=== PATIENT | female | born 2000 ===

== ENCOUNTER 2018-07-21 11:51 | Emergency (ER) | payer SELFPAY ==
[2018-07-21 11:56] VITALS: BP 106/71
[2018-07-21] MEDS ORDERED: NS 1,000 ML IV ONE ×2 (12:03→12:12)
[2018-07-21] MEDS ORDERED: METOCLOPRAMIDE 10 MG/2 ML VIAL IVP ONE (12:12)
[2018-07-21] MEDS ORDERED: KETOROLAC 15 MG/1 ML SDV IVP ONE (12:12)
--- NOTE | 2018-07-21 12:14 | EDPHY ---
H & P Stated Complaint: H/a x 3 days, and mid abd pain x 1 days w/vomiting Time Seen by Provider: 07/21/18 12:02 HPI/ROS: CHIEF COMPLAINT: Headache x3 days HISTORY OF PRESENT ILLNESS: 18-year-old female via private vehicle after being seen at [facility]. Patient describes 3 days of non thunderclap bifrontal headache. She has not taken any analgesia. She has also developed mild epigastric discomfort and nausea as well as vomited twice last evening. No back or flank pain. No urinary abnormality. No gait instability. No nuchal rigidity. No photophobia. No slurred speech. No fever or chills. No flu-like symptoms. PRIMARY CARE PROVIDER: [facility] REVIEW OF SYSTEMS: 10 systems reviewed and negative with the exception of the elements mentioned in the history of present illness PAST MEDICAL & SURGICAL HISTORY: No pertinent medical or surgical history SOCIAL HISTORY: Nonsmoker. Student. FAMILY HISTORY: No family history of chronic headache or migraine PHYSICAL EXAM (Prior to examination, patient consented to physical exam, hands were washed and my usual and customary physical exam procedures followed) 1) GENERAL: Well-developed, well-nourished, alert and oriented. Appears to be in no acute distress. 2) HEAD: Normocephalic, atraumatic 3) HEENT: Pupils equal, round, reactive to light bilaterally. Sclera anicteric. Nasopharynx, oropharynx, clear, no lesions. Moist Mucous membranes. Ears bilaterally with normal tympanic membranes. 4) NECK: Full range of motion, no meningeal signs. 5) LUNGS: Clear auscultation bilaterally, no wheezes, no rhonchi, no retractions. 6) HEART: Regular rate and rhythm, no murmur, no heave, no gallop. 7) ABDOMEN: No guarding, no rebound, no focal tenderness, negative McBurney's, negative Barragan's, negative Rovsing's, negative peritoneal sign, 8) MUSCULOSKELETAL: Moving all extremities, no focal areas of tenderness, no obvious trauma. No peripheral edema or discoloration. 9) BACK: No CVA tenderness, no midline vertebral tenderness, no fluctuance, no step-off, no obvious trauma, no visual or palpable abnormality. 10) SKIN: No rash, no petechiae. 11) Psychiatric: Patient is oriented X 3, there is no agitation. 12) NEURO: Awake, alert, and oriented to person, place and time. Answers questions appropriately. There were no obvious focal neurologic abnormalities. No cerebellar dysfunction. Cranial nerves 2 through to 12 intact. Normal steady gait. Upper and lower extremities bilaterally with strength 5 / 5, reflexes 2+. DIFFERENTIAL DIAGNOSIS: In no particular order, including but not limited to subarachnoid hemorrhage, migraine headache, tension headache and infectious causes such as meningitis, pharyngitis and sinusitis. The patient understands that this diagnosis is provisional and can never be 100% accurate. Usual and customary warnings were given concerning the clinical impression and all the patient's questions were answered. The patient was instructed to return to the emergency department should her symptoms worsen or return, or develop any new symptoms, otherwise to followup as directed in discharge instructions. This is a partial list of diagnoses considered. These considerations are based on history, physical exam, past history and reassessment. - Personal History LMP (Females 10-55): 15-21 Days Ago - Medical/Surgical History Hx Asthma: No Hx Chronic Respiratory Disease: No Hx Diabetes: No Hx Cardiac Disease: No Hx Renal Disease: No Hx Cirrhosis: No Hx Alcoholism: No Hx HIV/AIDS: No Hx Splenectomy or Spleen Trauma: No Other PMH: migraines - Social History Smoking Status: Never smoked Constitutional: Initial Vital Signs Temperature (C) 36.5 C 07/21/18 11:53 Heart Rate 86 07/21/18 11:53 Respiratory Rate 16 07/21/18 11:53 Blood Pressure 106/71 07/21/18 11:53 O2 Sat (%) 98 07/21/18 11:53 O2 Delivery Mode Room Air Allergies/Adverse Reactions: cetirizine [From Zyrtec] Allergy (Verified 07/21/18 11:52) Home Medications: Medication Instructions Recorded NK [No Known Home Meds] 07/21/18 Medical Decision Making ED Course/Re-evaluation: 12:12 p.m.: Patients has a nonfocal exam. At this time I think that meningitis is less than likely. Case discussed with secondary supervising physician Dr. Oliverio Sena in the ER 12:40 p.m. : patient informs at this time that she needs to leave. The only laboratory results available at this time are CBC and test. States that she is feeling better after partial IV hydration, Toradol and Reglan. She declines further diagnostic studies, declined CT imaging. Informed the patient that In my professional opinion, I think she necessitates further evaluation. In my professional opinion, the patient fully understands the risks to their health and well-being by leaving the emergency department AGAINST MEDICAL ADVICE. Patient states that she needs to leave now.. By leaving AGAINST MEDICAL ADVICE the patient has verbalized understanding and acceptance of the risks of leaving AGAINST MEDICAL ADVICE, including, but not limited to, , permanent and chronic disability, permanent and chronic loss of income, and other situations and circumstances too numerous to mention herein. I think the patient has the capacity to fully understand these risks. I have offered ample opportunity to answer questions. I have offered to speak with family and/or friends regarding this issue as well. Patient has been informed that they are welcome to return to emergency department at any point for reevaluation. - Data Points Laboratory Results: Laboratory Results 07/21/18 12:10 07/21/18 12:10 07/21/18 07/21/18 07/21/18 12:10 12:10 12:10 WBC 4.43 10^3/uL 10^3/uL (3.80-9.50) RBC 4.59 10^6/uL 10^6/uL (4.18-5.33) Hgb 14.7 g/dL g/dL (12.6-16.3) Hct 43.0 % % (38.0-47.0) MCV 93.7 fL fL (81.5-99.8) MCH 32.0 pg pg (27.9-34.1) MCHC 34.2 g/dL g/dL (32.4-36.7) RDW 12.3 % % (11.5-15.2) Plt Count 251 10^3/uL 10^3/uL (150-400) MPV 9.2 fL fL (8.7-11.7) Neut % (Auto) 53.7 % % (39.3-74.2) Lymph % (Auto) 33.6 % % (15.0-45.0) Arthur % (Auto) 9.3 % % (4.5-13.0) Eos % (Auto) 1.6 % % (0.6-7.6) Baso % (Auto) 1.6 % % (0.3-1.7) Nucleat RBC Rel Count 0.0 % % (0.0-0.2) Absolute Neuts (auto) 2.38 10^3/uL 10^3/uL (1.70-6.50) Absolute Lymphs (auto) 1.49 10^3/uL 10^3/uL (1.00-3.00) Absolute Monos (auto) 0.41 10^3/uL 10^3/uL (0.30-0.80) Absolute Eos (auto) 0.07 10^3/uL 10^3/uL (0.03-0.40) Absolute Basos (auto) 0.07 10^3/uL 10^3/uL (0.02-0.10) Absolute Nucleated RBC 0.00 10^3/uL 10^3/uL (0-0.01) Immature Gran % 0.2 % % (0.0-1.1) Immature Gran # 0.01 10^3/uL 10^3/uL (0.00-0.10) Sodium 141 mEq/L mEq/L (135-145) Potassium 4.0 mEq/L mEq/L (3.5-5.2) Chloride 110 mEq/L mEq/L (97-110) Carbon Dioxide 19 mEq/l L mEq/l (22-31) Anion Gap 12 mEq/L mEq/L (6-14) BUN 9 mg/dL mg/dL (7-23) Creatinine 0.6 mg/dL mg/dL (0.6-1.0) Estimated GFR > 60 Glucose 85 mg/dL mg/dL (70-100) Calcium 9.6 mg/dL mg/dL (8.5-10.4) Total Bilirubin 0.9 mg/dL mg/dL (0.1-1.4) Conjugated Bilirubin 0.2 mg/dL mg/dL (0.0-0.5) Unconjugated Bilirubin 0.7 mg/dL mg/dL (0.0-1.1) AST 21 IU/L IU/L (14-46) ALT 29 IU/L IU/L (9-52) Alkaline Phosphatase 55 IU/L IU/L (38-126) Total Protein 7.6 g/dL g/dL (6.3-8.2) Albumin 5.0 g/dL g/dL (3.5-5.0) Lipase 89 IU/L IU/L (23-300) Beta HCG, Qual NEGATIVE Medications Given: Discontinued Medications Sodium Chloride (Ns) 1,000 mls @ 0 mls/hr IV EDNOW ONE; Wide Open PRN Reason: Protocol Stop: 07/21/18 12:04 Last Admin: 07/21/18 12:14 Dose: 1,000 mls Sodium Chloride (Ns) 1,000 mls @ 0 mls/hr IV ONCE ONE PRN Reason: Wide Open Stop: 07/21/18 12:13 Last Admin: 07/21/18 12:16 Dose: 1,000 mls Ketorolac Tromethamine (Toradol) 15 mg IVP EDNOW ONE Stop: 07/21/18 12:13 Last Admin: 07/21/18 12:15 Dose: 15 mg Metoclopramide HCl (Reglan Injection) 10 mg IVP EDNOW ONE Stop: 07/21/18 12:13 Last Admin: 07/21/18 12:15 Dose: 10 mg Departure - Departure Disposition: Against Medical Advice Clinical Impression: Headache Qualifiers: Headache type: unspecified Headache chronicity pattern: acute headache Intractability: not intractable Qualified Code(s): R51 - Headache Referrals: NONE *PRIMARY CARE P,. [Primary Care Provider] - As per Instructions
[2018-07-21 12:25] LABS: PLATELET COUNT 251 10^3/uL (150-400)
== END 2018-07-21 12:30 | disposition left against medical advice (07) ==
DX: R51 Headache (principal); R10.13 Epigastric pain; R11.2 Nausea with vomiting, unspecified
CPT/HCPCS: 96374; J1885; J2765